=== PATIENT | female | born 1990 | race Caucasian/White ===

== ENCOUNTER 2020-04-17 22:19 | Emergency (ER) | payer MEDICAID ==
[~2020-04-17] VITALS: Ht 162.6 cm; Wt 83.9 kg
--- NOTE | 2020-04-17 22:30 | NUR ---
BIBS FOR C/O ON AND OFF MEDICAL NONRADIATING CP AND SYNCOPAL EPISODE
[2020-04-17] MEDS ORDERED: LORAZEPAM 1 MG TABLET ONE (22:49)
[2020-04-17 22:55] LABS: BASOPHILS % (AUTO) 0.3 % (0.0-2.0); EOSINOPHILS % (AUTO) 1.8 % (0.0-6.0); HEMATOCRIT 41 % (33-45); HEMOGLOBIN 13.6 g/dL (11.5-14.8); LYMPHOCYTES # (AUTO) 2.4 /CMM (0.8-4.8); LYMPHOCYTES % (AUTO) 33.4 % (20.0-44.0); MEAN CORPUSCULAR HGB CONC 34 g/dl (31.0-36.0); MEAN CORPUSCULAR VOLUME 82 fL (82-100); MONOCYTES # (AUTO) 0.6 /CMM (0.1-1.30); NEUTROPHILS # (AUTO) 4.1 /CMM (1.8-8.9); NEUTROPHILS % (AUTO) 56.5 % (43.0-81.0); PLATELET COUNT (AUTO) 224 /CMM (150-450); RED BLOOD CELL COUNT(AUTO) 4.96 MIL/uL (4.0-5.2); WHITE BLOOD COUNT (AUTO) 7.3 K/uL (4.3-11.0)
[2020-04-17] MEDS ORDERED: LORAZEPAM 1 MG TABLET PO ONE (23:00)
[2020-04-17 23:02] LABS: CALCIUM, SERUM 8.9 mg/dL (8.5-10.1); CARBON DIOXIDE 29 mmol/L (21-32); CHLORIDE 103 mmol/L (98-107); CREATININE 0.7 mg/dL (0.6-1.3); GLUCOSE 92 mg/dL (74-106); POTASSIUM 3.3 mmol/L (3.5-5.1); SODIUM SERUM 139 mmol/L (136-145); UREA NITROGEN, BLOOD 10 mg/dL (7-18)
[2020-04-18 00:16] VITALS: BP 134/74
--- NOTE | 2020-04-18 00:16 | NUR ---
Patient discharged to home in stable condition. Written and verbal after care instructions given. Patient verbalizes understanding of instruction.
== END 2020-04-18 00:16 | disposition home or self-care (01) ==
LOC: ER 22:22
DX: F41.9 Anxiety disorder, unspecified (principal); R07.89 Other chest pain; R55 Syncope and collapse; Z90.49 Acquired absence of other specified parts of digestive tract; Z98.890 Other specified postprocedural states
CPT/HCPCS: 36415; 71045-TC; 80048-TC; 84484-TC; 85025-TC

== ENCOUNTER 2020-07-06 14:41 | Emergency (ER) | payer MEDICAID, OTHER ==
[~2020-07-06] VITALS: Ht 162.6 cm; Wt 83.9 kg
[2020-07-06 14:59] VITALS: BP 137/69
[2020-07-06 15:46] LABS: BASOPHILS % (AUTO) 0.6 % (0.0-2.0); HEMATOCRIT 37 % (33-45); HEMOGLOBIN 11.7 g/dL (11.5-14.8); LYMPHOCYTES # (AUTO) 1.7 /CMM (0.8-4.8); LYMPHOCYTES % (AUTO) 25.9 % (20.0-44.0); MEAN CORPUSCULAR HGB CONC 32 g/dl (31.0-36.0); MEAN CORPUSCULAR VOLUME 90 fL (82-100); MONOCYTES # (AUTO) 0.5 /CMM (0.1-1.30); MONOCYTES % (AUTO) 7.3 % (2.0-12.0); NEUTROPHILS # (AUTO) 3.6 /CMM (1.8-8.9); NEUTROPHILS % (AUTO) 53.2 % (43.0-81.0); PLATELET COUNT (AUTO) 307 /CMM (150-450); RED BLOOD CELL COUNT(AUTO) 4.12 MIL/uL (4.0-5.2); WHITE BLOOD COUNT (AUTO) 6.7 K/uL (4.3-11.0)
[2020-07-06 15:55] LABS: CALCIUM, SERUM 9.2 mg/dL (8.5-10.1); CREATININE 0.6 mg/dL (0.6-1.3); POTASSIUM 3.6 mmol/L (3.5-5.1)
--- NOTE | 2020-07-06 16:01 | NUR ---
WHEELED OUT VIA WHEELCHAIR FOR CT SCAN
[2020-07-06] MEDS ORDERED: IV NS 0.9% 250 ML IV ONE (16:09)
[2020-07-06] MEDS ORDERED: IOHEXOL-300 100 ML VIAL IV ONE (16:09)
[2020-07-06] MEDS ORDERED: CT SWABBABLE VALVE TRANS SET 1 EA INFUS.SET MC ONE (16:09)
== END 2020-07-06 17:29 | disposition home or self-care (01) ==
LOC: ER 14:44
DX: M96.843 Postprocedural seroma of a musculoskeletal structure following other procedure (principal); K91.872 Postprocedural seroma of a digestive system organ or structure following a digestive system procedure; F17.200 Nicotine dependence, unspecified, uncomplicated; Z98.890 Other specified postprocedural states; Z90.49 Acquired absence of other specified parts of digestive tract
CPT/HCPCS: 74177; 80048; 85025; 99285; J7050; Q9967; 36415

== ENCOUNTER 2024-12-28 10:45 | Emergency (ER) | payer OTHER ==
[~2024-12-28] VITALS: Ht 162.6 cm; Wt 79.8 kg
[2024-12-28 12:59] VITALS: BP 114/82; TEMP 98.3; O2SAT 99
== END 2024-12-28 13:00 | disposition home or self-care (01) ==
LOC: ER 10:51
DX: R09.A2 Foreign body sensation, throat (principal); F17.200 Nicotine dependence, unspecified, uncomplicated; Z90.49 Acquired absence of other specified parts of digestive tract
CPT/HCPCS: 70490-TC